=== PATIENT | female | born 1970 | race Two or more races ===

== ENCOUNTER 2018-01-28 11:30 | Outpatient (CLI) | payer OTHER | END 2018-01-28 11:44 | disposition home or self-care (01) | LOC: MAMO-SONO 11:30 → RAD 11:30 | DX: Z12.31 Encounter for screening mammogram for malignant neoplasm of breast (principal); Z13.820 Encounter for screening for osteoporosis; Z12.11 Encounter for screening for malignant neoplasm of colon; M54.5 Low back pain; E03.9 Hypothyroidism, unspecified ==

== ENCOUNTER 2018-04-01 10:32 | Outpatient (CLI) | payer OTHER | END 2018-04-01 10:41 | disposition home or self-care (01) | LOC: SONOGRAMA 10:32 | DX: M54.5 Low back pain (principal); E03.8 Other specified hypothyroidism; Z13.820 Encounter for screening for osteoporosis; Z12.11 Encounter for screening for malignant neoplasm of colon; Z12.31 Encounter for screening mammogram for malignant neoplasm of breast ==

== ENCOUNTER 2018-07-04 09:00 | Outpatient (CLI) | payer OTHER | END 2018-07-04 09:05 | disposition home or self-care (01) | LOC: LAB 09:00 | DX: M54.5 Low back pain (principal); E03.8 Other specified hypothyroidism; D24.2 Benign neoplasm of left breast; N60.11 Diffuse cystic mastopathy of right breast; N60.12 Diffuse cystic mastopathy of left breast; Z13.820 Encounter for screening for osteoporosis; Z12.31 Encounter for screening mammogram for malignant neoplasm of breast; Z12.11 Encounter for screening for malignant neoplasm of colon ==

== ENCOUNTER 2018-10-22 08:33 | Outpatient (CLI) | payer OTHER | END 2018-10-22 08:42 | disposition home or self-care (01) | LOC: RAD 501 08:33 | DX: M25.551 Pain in right hip (principal); M25.561 Pain in right knee; M25.512 Pain in left shoulder; M25.522 Pain in left elbow ==

== ENCOUNTER 2023-10-21 05:03 | Day surgery (SDC) | payer OTHER ==
[2023-10-21] MEDS ORDERED: METRONIDAZOLE/SODIUM CHLORIDE 500 MG/100 ML PIGGYBACK IV ONE ×2 (06:24→07:30)
[2023-10-21] MEDS ORDERED: CEFTRIAXONE SODIUM 2,000 MG VIAL ONE (06:24)
[2023-10-21] MEDS ORDERED: HEMOSTATIC MATRIX 1 KIT KIT TOP ONE (07:02)
[2023-10-21] MEDS ORDERED: DIBUCAINE 15 GM OINT..GM. TUBE ONE (07:02)
[2023-10-21] MEDS ORDERED: POVIDONE-IODINE 118 ML BOTT TOP ONE ×2 (07:02→07:30)
[2023-10-21] MEDS ORDERED: BUPIVACAINE HCL/PF 0.5% 30ML ML ONE (07:02)
[2023-10-21] MEDS ORDERED: LIDOCAINE HCL/EPINEPHRINE 10MG/ML 1% 50ML IJ ONE (07:04)
[2023-10-21] MEDS ORDERED: CEFTRIAXONE SODIUM 2,000 MG VIAL IV ONE (07:30)
[2023-10-21] MEDS ORDERED: DIBUCAINE 30 GM TUBE TOP ONE (07:30)
[2023-10-21] MEDS ORDERED: HEMOSTATIC MATRIX WITH THROMBIN KIT TOP ONE (07:30)
[2023-10-21] MEDS ORDERED: LIDOCAINE HCL/EPINE 1%-Epi 30ML VIAL IJ ONE (07:30)
[2023-10-21] MEDS ORDERED: BUPIVACAINE HCL/MPF 0.5% 30ML VIAL IJ ONE (07:30)
[2023-10-21] MEDS ORDERED: TAMSULOSIN HCL 0.4 MG CAP PO STA (08:34)
[2023-10-21] MEDS ORDERED: TRAM1TAB98 PO (08:35)
[2023-10-21] MEDS ORDERED: RECTICARE30 GM TOP (08:35)
[2023-10-21] MEDS ORDERED: TAMSULOSIN HCL 0.4 MG CAP PO ONE (11:27)
== END 2023-10-21 14:05 | disposition home or self-care (01) ==
LOC: CIR.AMB 05:03 → U 05:03 → CIR.AMB 11:15
PROVIDERS: ATTEND Surgery
DX: K60.3 Anal fistula (principal); Z88.6 Allergy status to analgesic agent; Z20.822 Contact with and (suspected) exposure to COVID-19